=== PATIENT | male | born 1940 | race Caucasian/White ===

== ENCOUNTER 2021-04-04 06:35 | Emergency (ER) | payer OTHER, MEDICAID ==
[~2021-04-04] VITALS: Ht 172.7 cm; Wt 59.0 kg
[2021-04-04] MEDS ORDERED: PANTOPRAZOLE 40 MG INJ VIAL IVP ONE (06:45)
--- NOTE | 2021-04-04 06:45 | NUR ---
PT BIBA TO ER BED 05
[2021-04-04 06:48] VITALS: BP 119/73
--- NOTE | 2021-04-04 06:48 | NUR ---
BIBA TO BED 5 FROM [facility] WITH C/O BLOOD IN STOOL YESTERDAY AM. HAD SUBSEQUENT STOOL LAST EVENING , NO BLOOD WAS NOTED. PT PRIMARILY SPEAKS GEORGIAN AND HAS PMH OF SD. PER MEDIC, PT IS AT BASELINE. F/C IS IN PLACE DRAINING JUD COLORED URINE. PEG TUBE TO LEFT ABDOMEN INTACT. PT WITH PICC TO RIGHT ARM. ATTACHED TO CM = SR WITHOUT ECTOPY. DENIES PAIN AT THIS TIME PMH : PROSTATE CA, HYPOTHYROID, HYPOTENSION, SD, GASTRIC ULCERS NKDA
[2021-04-04] MEDS ORDERED: NACL 0.9% 1,000 ML IV ONE (07:30)
[2021-04-04] MEDS ORDERED: NACL 0.9% 500 ML IV ONE (07:30)
--- NOTE | 2021-04-04 08:01 | NUR ---
XRAY AT PATIENT BEDSIDE
[2021-04-04] MEDS ORDERED: PANTOPRAZOLE 40 MG INJ VIAL ONE (08:18)
--- NOTE | 2021-04-04 08:37 | NUR ---
LAB AT BEDSIDE.
[2021-04-04 09:43] LABS: ANION GAP 10.6 (8-16); ASPARTATE AMINOTRANSFERASE 19 U/L (15-37); CARBON DIOXIDE 27.6 mmol/L (21-32); CHLORIDE 101 mmol/L (98-107); CREATININE 0.5 mg/dL (0.6-1.3); GLUCOSE 123 mg/dL (74-106); POTASSIUM 4.2 mmol/L (3.5-5.1); SODIUM SERUM 135 mmol/L (136-145); TOTAL BILIRUBIN 0.2 mg/dL (0.0-1.0); UREA NITROGEN, BLOOD 16 mg/dL (7-18)
--- NOTE | 2021-04-04 10:03 | NUR ---
GENIE SWAB DONE AND WALKED TO THE LAB.
[2021-04-04 10:09] LABS: APPEARANCE,URINE CLEAR (CLEAR); BILIRUBIN,URINE NEGATIVE (NEGATIVE); BLOOD, URINE 1+ (NEGATIVE); COLOR,URINE YELLOW (YELLOW); LEUKOCYTE ESTERASE ,URINE NEGATIVE (NEGATIVE); NITRITE, URINE NEGATIVE (NEGATIVE); UGLUCOSE NEGATIVE (NEGATIVE)
[2021-04-04] MEDS ORDERED: cefTRIAXone 1,000 MG VIAL ONE (10:13)
[2021-04-04 10:29] LABS: BASOPHILS # (AUTO) 0.1 K/uL (0.00-0.22); EOSINOPHILS # (AUTO) 0.3 K/uL (0-0.4); EOSINOPHILS % (AUTO) 5.1 % (0.0-4.0); HEMATOCRIT 24.1 % (36-52); HEMOGLOBIN 8.1 g/dL (12.0-18.0); LYMPHOCYTES # (AUTO) 0.9 K/uL (2.0-11.5); LYMPHOCYTES % (AUTO) 15.3 % (20.5-51.1); MEAN CORPUSCULAR HEMOGLOBIN 31 pg (27-31); MEAN CORPUSCULAR HGB CONC 34 g/dL (33-37); MEAN CORPUSCULAR VOLUME 92.6 fL (80-94); MONOCYTES # (AUTO) 0.6 K/uL (0.8-1.0); MONOCYTES % (AUTO) 9.8 % (1.7-9.3); NEUTROPHILS # (AUTO) 3.9 K/uL (1.8-7.7); NEUTROPHILS % (AUTO) 68.8 % (42.2-75.2); PLATELET COUNT (AUTO) 247 K/uL (140-450); RED CELL DISTRIBUTION WIDTH 15.1 % (11.6-13.7); WHITE BLOOD COUNT (AUTO) 5.7 K/uL (4.8-10.8)
[2021-04-04 11:01] LABS: WBC,URINE 0-5 /HPF (0-5)
[2021-04-04 11:02] LABS: HYALINE CASTS, URINE 0-10 /LPF (None Seen)
--- NOTE | 2021-04-04 15:05 | NUR ---
SPOKE WITH PT DAUGHTER STEVO, SHE IS ANABLE TO DIETITIAN TEACHING THE PT.
--- NOTE | 2021-04-04 18:55 | NUR ---
PT EATING DINNER.
--- NOTE | 2021-04-04 19:20 | NUR ---
REPORT RECEIVED FROM BARRON POTTER. CONTINUITY OF PT CARE AT THIS TIME.
--- NOTE | 2021-04-04 19:31 | NUR ---
GAVE REPORT TO RADHA SAXENA.
--- NOTE | 2021-04-04 19:33 | NUR ---
PT LAYING IN BED LOCKED IN LOWEST POSITION W X2 SIDERAILS UP FOR PT SAFETY. PT HOB ELEVATED. PT DENIES ANY PAIN. PT CURRENTLY EATING DINNER. VSS. PEREZ DRAINING TO GRAVITY. NAD NOTED, WILL CONTINUE TO MONITOR.
--- NOTE | 2021-04-04 22:37 | NUR ---
PT LAYING IN BED. DENIES PAIN OR OTHER SYMPTOMS. PT REQUESTING TO CALL HIS DAUGHTER FOR EVALUATOR TRANSFER STUDENTS. CALLED PT DAUGHTER. NO ANSWER AT THIS TIME.
--- NOTE | 2021-04-05 01:05 | NUR ---
NO CHANGE IN PT STATUS. PT AWAKE, DENIES ANY SYMPTOMS.
--- NOTE | 2021-04-05 03:01 | NUR ---
PT APPEARS TO BE RESTING W EYES CLOSED IN R LATERAL POSITION. CONNECTED TO MONITOR W VSS. BREATHING EVEN AND UNLABORED. NAD NOTED, WILL CONTINUE TO MONITOR.
--- NOTE | 2021-04-05 06:54 | NUR ---
NO CHANGE IN PT STATUS. PT AWAKE IN BED. CONNECTED TO MONITOR W VSS. BLANKET ON. BED LOCKED IN LOWEST POSIITON. BREATHING EVEN AND UNLABORED. NAD NOTED, WILL CONTINUE TO MONITOR.
--- NOTE | 2021-04-05 07:17 | NUR ---
Pt report given to HEMANTH ACEVEDO. Transfer of care at this time.
--- NOTE | 2021-04-05 07:46 | NUR ---
RECEIVED BEDSIDE REPORT FROM RADHA SAXENA FOR CONTINUITY OF CARE. PT LYING IN THE BED. ITAL[place] SPEAKING. AAOX2. DENIES PAIN AT THIS TIME. ON ROOM AIR. SR ON MONITOR. PEG TUBE IN PLACE. MEGAN PICC IN PLACE, PATENT, INTACT. DENIES PAIN. NO S/S OF BLEEDING. WILL CONTINUE TO CLOSELY MONITOR.
--- NOTE | 2021-04-05 10:45 | NUR ---
Patient discharged with v/s stable. Written and verbal after care instructions given and explained. Patient verbalized understanding. Ambulance Transport with to [facility]. All questions addressed prior to discharge. Advised to follow up with GI SPECIALIST PMD.
--- NOTE | 2021-04-05 10:50 | NUR ---
CALLED REPORT TO SANDRA RIVAS RN FOR CONTINUITY OF CARE.
[2021-04-05 11:13] VITALS: BP 120/75
== END 2021-04-04 10:45 | disposition short-term general hospital (02) ==
LOC: MED 06:35
DX: K92.2 Gastrointestinal hemorrhage, unspecified (principal); Z20.822 Contact with and (suspected) exposure to COVID-19; D64.9 Anemia, unspecified; Z85.46 Personal history of malignant neoplasm of prostate
CPT/HCPCS: 36415; 71045; 80053; 81001; 83605; 83880; 84484; 85025; 85610; 85730; 86886; 86900; 86901; 87040; 87086; 87426; 93005; 96361; 96365; 96375; 99285; C9113; J0696; J7030; Q0092